=== PATIENT | female | born 1990 | race Caucasian/White ===

== ENCOUNTER 2024-06-04 18:19 | Emergency (ER) | payer OTHER ==
[~2024-06-04] VITALS: Ht 157.5 cm; Wt 90.9 kg
[2024-06-04] MEDS: KETOROLAC 30 MG/ML 1ML VIAL IV ONE (18:42)
[2024-06-04] MEDS: ONDANSETRON 4MG 2ML VIAL IV ONE (18:42)
[2024-06-04] MEDS: diphenhydrAMINE 50MG/ML VIAL IV ONE (18:43)
[2024-06-04 18:46] LABS: BASO % 0.2 % (0.0-1.0); EOS # 0.1 10^3/uL (0.0-0.5); EOS % 0.9 % (0.0-3.0); HEMATOCRIT 31.5 % (36.0-47.0); HEMOGLOBIN 10.7 g/dl (12.0-15.5); LYMPH # 0.6 10^3/uL (1.5-5.0); LYMPH % 5.5 % (24.0-44.0); MEAN CORPUSCULAR HEMOGLOBIN 29.7 pg (27.0-33.0); MEAN CORPUSCULAR VOLUME 87.5 fl (80.0-96.0); MONO # 0.9 10^3/uL (0.0-0.8); MONO % 8.2 % (2.0-8.0); NEUTROPHILS # 9.4 10^3/uL (1.5-8.5); NEUTROPHILS % 84.9 % (36.0-66.0); PLATELET COUNT, AUTOMATED 238 10^3/uL (150-450); WHITE BLOOD COUNT 11.1 10^3/uL (4.0-10.0)
[2024-06-04] MEDS ORDERED: OXYC1TAB23 (18:48)
[2024-06-04 18:58] LABS: INR 0.99; PROTHROMBIN TIME 13.4 SECONDS (12.5-14.5)
[2024-06-04 19:17] LABS: LIPASE 25 U/L (12-53)
[2024-06-04 19:20] LABS: ALBUMIN 2.6 G/DL (3.2-5.2); ALKALINE PHOSPHATASE 87 U/L (35-104); ALT/SGPT 110 U/L (7.0-40); AST/SGOT 90 U/L (<34); BILIRUBIN,DIRECT < 0.1 MG/DL (<0.4); BILIRUBIN,TOTAL 0.4 MG/DL (0.3-1.2); BLOOD UREA NITROGEN 12 MG/DL (9-23); CALCIUM LEVEL 9.2 MG/DL (8.5-10.1); CARBON DIOXIDE LEVEL 27 MMOL/L (20-31); CHLORIDE LEVEL 103 MMOL/L (98-107); CREATININE FOR GFR 0.61 MG/DL (0.55-1.30); GLOMERULAR FILTRATION RATE > 60.0 (>60); GLUCOSE, FASTING 90 MG/DL (60-100); SODIUM LEVEL 139 MMOL/L (136-145); TOTAL PROTEIN 6.2 G/DL (5.7-8.2)
[2024-06-04 19:30] LABS: KETONE, URINE AUTO RFX NEGATIVE (NEGATIVE); NITRITE, URINE AUTO RFX NEGATIVE (NEGATIVE); RBC, URINE AUTO RFX 12 /HPF (0-3); SQUAM EPITHELIAL CELL UR AURFX 0 /HPF (0-6)
[2024-06-04 19:51] LABS: LEUKOCYTE ESTERASE UR AUTO RFX 2+ (NEGATIVE); WBC, URINE AUTO RFX 40 /HPF (0-3)
[2024-06-04] MEDS ORDERED: AZIT-12 PO (20:45)
[2024-06-04] MEDS: AZITHROMYCIN INJ 500 MG, VIAL MATE ADAPTER 1 EACH in NS 250 ML IV ONE (21:46)
[2024-06-04 21:55] VITALS: TEMP 98.8
[2024-06-04] MEDS: MORPHINE 2 MG/ML 1ML VIAL IV ONE (21:55)
[2024-06-04 22:45] VITALS: BP 101/59; O2SAT 95
== END 2024-06-04 23:07 | disposition home or self-care (01) ==
LOC: EDSEX 18:19 → EDBD 18:19 → M ED 18:19
DX: N39.0 Urinary tract infection, site not specified (principal); N20.0 Calculus of kidney; N85.2 Hypertrophy of uterus; Z79.2 Long term (current) use of antibiotics; Z79.899 Other long term (current) drug therapy
CPT/HCPCS: 74176; 80047; 80048; 80076; 81001; 83690; 85025; 85610; 87088; 87186; 96365; 96375; 99284; J0456; J1200; J1885; J2405